=== PATIENT | female | born 1990 | race Caucasian/White ===

== ENCOUNTER 2020-09-29 09:00 | Inpatient (IN) | payer MEDICAID ==
[2020-09-29] MEDS ORDERED: Misoprostol 50 MCG (1/2 of 100 MCG) Tab VAG ONE ×3 (09:30→13:00)
[2020-09-29] MEDS ORDERED: Sodium Chloride 0.9% 10 ML Syringe FLUSH PRN (10:37)
[2020-09-29] MEDS ORDERED: fentaNYL 100 MCG/2 ML SDV IVPUSH PRN ×2 (10:37→20:45)
[2020-09-29] MEDS ORDERED: Ondansetron 4 MG/2 ML SDV IV PRN (10:37)
[2020-09-29] MEDS ORDERED: Calcium Carbonate 500 MG Tab.Chew PO PRN (10:37)
--- NOTE | 2020-09-29 10:54 | PCM.LDHP ---
L&D History of Present Illness - General Date of Service: 09/29/20 Admit Problem/Dx: Patient Status Order with Admit Dx/Problem 09/29/20 10:37 Patient Status [ADT] Routine Admission Diagnosis/Problem Admission Diagnosis/Problem demise affecting labor Source of Information: Patient History Limitations: Reports: No Limitations - History of Present Illness Introduction:: 09/29/20 Nila is a 30 yo here for induction of labor due to demise diagnosed at 33 1/7 weeks. She came in yesterday to the clinic for decreased or absent movement since Sunday09/26/20 and we were unable to find heart tones. She noted he had slowed down and done more rolling rather than sharp kicking or punching last week but was still moving. This was confirmed with an ultrasound. She has had an uncomplicated and has no risk factors. She did have mild COVID at 12 weeks . Blood type O positive, RPR/HIV/Hep B/C all non reactive, rubella immune. Yesterday options were gone over with Nila and her including expectant management for up to 2 weeks, induction of labor, or oral Cytotec at home. They went home and thought about options and ultimately decided they wanted to have an induction of labor today. They have declined any genetic testing on baby, or autopsy. They do agree to TORCH panel on mom. Her p revious two girls had uncomplicated and . They are anticipating their first boy, Lucio. Mother has no history of chronic disease, STI, bleeding, or clotting disorders. Mother had declined first and second trimester genetic testing due to not desiring it and being low risk with no family history. - Related Data Allergies/Adverse Reactions: Allergies Allergy/AdvReac Type Severity Reaction Status Date / Time No Known Allergies Allergy Verified 09/29/20 09:28 Home Medications: Home Meds Mv-Mn/Iron/FA/Herbal/Digestive [ One Tablet] 1 tab PO DAILY 09/29/20 [History] Past Medical History - Past Health History Medical/Surgical History: Denies Medical/Surgical History [employer] History: Reports: : 3 Para: 2 LMP (Approximate): - Infectious Disease History Infectious Disease History: Reports: Chicken Pox Social & Family History - Family History Family Medical History: No Pertinent Family History - Tobacco Use Tobacco Use Status *Q: Never Tobacco User - Caffeine Use Caffeine Use: Reports: Coffee - Recreational Drug Use Recreational Drug Use: No Drug Use in Last 12 Months: No H&P Review of Systems - Review of Systems: Review Of Systems: See Below General: Reports: No Symptoms HEENT: Reports: No Symptoms Pulmonary: Reports: No Symptoms Cardiovascular: Reports: No Symptoms Gastrointestinal: Reports: No Symptoms Genitourinary: Reports: No Symptoms Musculoskeletal: Reports: No Symptoms Skin: Reports: No Symptoms Psychiatric: Reports: No Symptoms Neurological: Reports: No Symptoms Hematologic/Lymphatic: Reports: No Symptoms Immunologic: Reports: No Symptoms L&D Exam - Exam Exam: See Below - Vital Signs Vital Signs: Last Vital Signs Temp 36.3 C 09/29/20 09:30 Pulse 90 09/29/20 09:30 Resp 16 09/29/20 09:30 BP 140/72 09/29/20 09:30 Pulse Ox 98 09/29/20 09:30 Weight: 65 kg - OB Specific Contraction Intensity: Cramping Movement: Not Appreciated Heart Tones: Not [place] - Vizcaino Score Vizcaino Score Cervix Position: Midposition Vizcaino Score Consistency: Soft Vizcaino Score Effacement: 51-70% Vizcaino Score Dilation: 1-2 cm Ivzcaino Score 's Station: -3 Vizcaino Score Total: 6 - Exam General: Alert, Oriented HEENT: PERRLA, Conjunctiva Clear, Hearing Intact, Mucosa Moist & [place], Nares Patent, Normal Nasal Septum, Pupils Equal, Pupils Reactive Neck: Supple, Trachea Midline Lungs: Clear to Auscultation, Normal Respiratory Effort Cardiovascular: Regular Rate, Regular Rhythm GI/Abdominal Exam: Normal Bowel Sounds, Soft, Non-Tender, No Distention, Pelvis Stable Genitourinary: Normal external exam, Normal bimanual exam, Cervical dilitation, Enlarged uterus. No: Vaginal bleeding Back Exam: Normal Inspection, Full Range of Motion Extremities: Normal Inspection, Normal Range of Motion, Non-Tender, No Pedal Edema, Normal Capillary Refill Skin: Warm, Dry, Intact Neurological: Cranial Nerves Intact, Reflexes Equal Bilateral Psychiatric: Alert, Normal Affect, Normal Mood, Other (tearful at times, smiling and talkative though and doing well given the situation) - Problem List (1) 33 weeks gestation of SNOMED Code(s): 62215567 ICD Code: Z3A.33 - 33 WEEKS GESTATION OF Status: Acute Current Visit: Yes (2) demise in [place] greater than 22 weeks gestation, antepartum SNOMED Code(s): 66278235, 286313567 ICD Code: O36.4XX0 - MATERNAL CARE FOR INTRAUTERINE , NOT APPLICABLE OR UNSP Status: Acute Current Visit: Yes Problem List Initiated/Reviewed/Updated: Yes Orders Last 24hrs: Active Orders 24 hr Category Date Time Status Patient Status [ADT] Routine ADT 09/29/20 10:37 Ordered Notify Provider Vital Signs [RC] PRN Care 09/29/20 10:42 Ordered Up ad Maria A [RC] ASDIRECTED Care 09/29/20 10:37 Ordered VTE/DVT Education [RC] Click to Edit Care 09/29/20 10:42 Ordered Vital Signs [RC] PER UNIT ROUTINE Care 09/29/20 10:37 Ordered Regular Diet [DIET] Diet 09/29/20 Breakfast Ordered CBC WITH AUTO DIFF [HEME] Routine Lab 09/29/20 09:04 Ordered COMPREHENSIVE METABOLIC PN,CMP [CHEM] Routine Lab 09/29/20 09:05 Ordered CORONAVIRUS COVID-19, AQUILINO Routine Lab 09/29/20 10:41 Ordered CYTOMEGALOVIRUS (CMV) AB, IGG Routine Lab 09/29/20 09:06 Ordered CYTOMEGALOVIRUS (CMV) AB, IGM Routine Lab 09/29/20 09:06 Ordered DRUG SCREEN, URINE [URCHEM] Routine Lab 09/29/20 09:05 Ordered HSV 1 AND 2-SPEC AB, IGG W/RFX Routine Lab 09/29/20 09:06 Ordered PARVOVIRUS B19, HUMAN, IGG/IGM Routine Lab 09/29/20 09:06 Ordered RUBELLA ANTIBODIES, IGG Routine Lab 09/29/20 09:06 Ordered RUBELLA ANTIBODIES, IGM Routine Lab 09/29/20 09:06 Ordered TOXOPLASMA GONDII AB, IGG Routine Lab 09/29/20 10:35 Ordered TOXOPLASMA GONDII AB,IGM Routine Lab 09/29/20 10:35 Ordered TSH ULTRASENSITIVE [CHEM] Routine Lab 09/29/20 09:06 Ordered TYPE AND SCREEN [BBK] Routine Lab 09/29/20 09:05 Ordered URINALYSIS W/MICROSCOPIC [UA W/MICROSCOPIC] [URIN] Lab 09/29/20 09:05 Ordered Routine Calcium Carbonate [Tums] Med 09/29/20 10:37 Ordered 1,000 mg PO Q2HR PRN Ondansetron [Zofran] Med 09/29/20 10:37 Ordered 4 mg IV Q4H PRN Oxytocin/Normal Saline [Pitocin in NS 20 Units/1,000 ML Med 09/29/20 10:45 Ordered ] 20 unit in 1,000 ml IV TITRATE Sodium Chloride 0.9% [Saline Flush] Med 09/29/20 10:37 Ordered 10 ml FLUSH ASDIRECTED PRN fentaNYL [Sublimaze] Med 09/29/20 10:37 Ordered 100 mcg IVPUSH Q1H PRN DVT/VTE Prophylaxis Reflex [OM.PC] Routine Oth 09/29/20 10:37 Ordered Saline Lock Insert [OM.PC] Routine Oth 09/29/20 10:37 Ordered Resuscitation Status Routine Resus Stat 09/29/20 10:37 Ordered Medication Orders Calcium Carbonate/Glycine (Tums) 1,000 mg PO Q2HR PRN PRN Reason: Indigestion Fentanyl (Sublimaze) 100 mcg IVPUSH Q1H PRN PRN Reason: Pain (moderate 4-6) Oxytocin/Sodium Chloride (Pitocin In Ns 20 Units/1,000 Ml) 20 unit in 1,000 mls @ 6 mls/hr IV TITRATE ИВАН; Protocol Ondansetron HCl (Zofran) 4 mg IV Q4H PRN PRN Reason: Nausea/Vomiting Sodium Chloride (Saline Flush) 10 ml FLUSH ASDIRECTED PRN PRN Reason: Keep Vein Open Assessment/Plan Comment:: 09/29/20 Assessment: 30 yo here for elective induction of labor due to demise that was diagnosed yesterday Baby likely 09/26/20, the day she felt no movement Uncomplicated , no risk factors identified 33 09/05 today SVE /3 Plan: Lab work ordered to include TORCH panel and parovirus Declines genetic testing Declines autopsy 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
--- NOTE | 2020-09-29 13:54 | PCM.PNLD ---
Labor Progress Note - VS & Meds Vital Signs: Last Vital Signs Temp 36.4 C 09/29/20 13:00 Pulse 89 09/29/20 13:00 Resp 16 09/29/20 13:00 BP 136/66 09/29/20 13:00 Pulse Ox 98 09/29/20 13:00 Active Medications: Current Medications Calcium Carbonate/Glycine (Tums) 1,000 mg PO Q2H PRN PRN Reason: Indigestion Fentanyl (Sublimaze) 100 mcg IVPUSH Q1H PRN PRN Reason: Pain (moderate 4-6) Oxytocin/Sodium Chloride (Pitocin In Ns 20 Units/1,000 Ml) 20 unit in 1,000 mls @ 6 mls/hr IV TITRATE ИВАН; Protocol Ondansetron HCl (Zofran) 4 mg IV Q4H PRN PRN Reason: Nausea/Vomiting Sodium Chloride (Saline Flush) 10 ml FLUSH ASDIRECTED PRN PRN Reason: Keep Vein Open Discontinued Medications Misoprostol (Cytotec) 50 mcg VAG ONETIME ONE Stop: 09/29/20 09:31 Last Admin: 09/29/20 09:30 Dose: 50 mcg Documented by: Misoprostol (Cytotec) 100 mcg VAG ONETIME ONE Stop: 09/29/20 13:01 Misoprostol (Cytotec) 100 mcg VAG ONETIME ONE Stop: 09/29/20 12:46 - Uterine Contractions Contraction Intensity: Mild Uterine Resting Tone: Soft - Vaginal Exam Dilation (cm): 2 Effacement (Percent): 80 Station: -2 Cervical Position: Midposition Sterile Vaginal Exam Performed By: Minoo Rodriguez - Labor Progress (Free Text) Labor Progress: 09/29/20 Patient is comfortable but feeling contractions mild. Contractions are every 1-2 minutes and moderate. She has made cervical change and is now 2/80/-2. We have chosen not to do any intervention at this time and will let her continue to contract and recheck in a couple of hours. She would like an epidural before adding pitocin or ROM. is in the room and very supportive. Nila is doing well.
[2020-09-29] MEDS ORDERED: Lactated Ringers 1,000 ML IV ONE (16:05)
[2020-09-29] MEDS ORDERED: diphenhydrAMINE 50 MG/ML SDV IVPUSH PRN ×2 (16:16)
[2020-09-29] MEDS ORDERED: Naloxone 0.4 MG/ML SDV IVPUSH PRN (16:16)
[2020-09-29] MEDS ORDERED: ePHEDrine 50 MG/ML SDV IVPUSH PRN (16:16)
[2020-09-29] MEDS ORDERED: Lactated Ringers 1,000 ML IV SCH (16:30)
[2020-09-29] MEDS ORDERED: Ropivacaine 200 MG in Premix Bag 1 BAG EPIDUR SCH (16:30)
--- NOTE | 2020-09-29 17:56 | PCM.PNLD ---
Labor Progress Note - VS & Meds Vital Signs: Last Vital Signs Temp 36.4 C 09/29/20 17:35 Pulse 75 09/29/20 17:45 Resp 16 09/29/20 17:45 BP 131/71 09/29/20 17:45 Pulse Ox 97 09/29/20 17:45 Active Medications: Current Medications Calcium Carbonate/Glycine (Tums) 1,000 mg PO Q2H PRN PRN Reason: Indigestion Diphenhydramine HCl (Benadryl) 25 mg IVPUSH Q6H PRN PRN Reason: Itching Diphenhydramine HCl (Benadryl) 50 mg IVPUSH Q6H PRN PRN Reason: Itching Ephedrine Sulfate (Ephedrine Sulfate) 10 mg IVPUSH ASDIRECTED PRN PRN Reason: Hypotension Fentanyl (Sublimaze) 100 mcg IVPUSH Q1H PRN PRN Reason: Pain (moderate 4-6) Oxytocin/Sodium Chloride (Pitocin In Ns 20 Units/1,000 Ml) 20 unit in 1,000 mls @ 6 mls/hr IV TITRATE ИВАН; Protocol Last Admin: 09/29/20 17:50 Dose: 2 munits/min, 6 mls/hr Documented by: Lactated Ringer's (Ringers, Lactated) 1,000 mls @ 100 mls/hr IV ASDIRECTED ИВАН Last Admin: 09/29/20 17:05 Dose: 100 mls/hr Documented by: Ropivacaine 200 mg/ Premix 100 mls @ 0 mls/hr EPIDUR ASDIRECTED ИВАН Naloxone HCl (Narcan) 0.1 mg IVPUSH ASDIRECTED PRN PRN Reason: Oversedation Ondansetron HCl (Zofran) 4 mg IV Q4H PRN PRN Reason: Nausea/Vomiting Sodium Chloride (Saline Flush) 10 ml FLUSH ASDIRECTED PRN PRN Reason: Keep Vein Open Discontinued Medications Lactated Ringer's (Ringers, Lactated) 1,000 mls @ 999 mls/hr IV BOLUS ONE Stop: 09/29/20 17:05 Last Admin: 09/29/20 16:05 Dose: 999 mls/hr Documented by: Misoprostol (Cytotec) 50 mcg VAG ONETIME ONE Stop: 09/29/20 09:31 Last Admin: 09/29/20 09:30 Dose: 50 mcg Documented by: Misoprostol (Cytotec) 100 mcg VAG ONETIME ONE Stop: 09/29/20 13:01 Misoprostol (Cytotec) 100 mcg VAG ONETIME ONE Stop: 09/29/20 12:46 Last Admin: 09/29/20 13:53 Dose: Not Given Documented by: - Uterine Contractions Uterine Monitoring Mode: External [place], Palp[place] Contraction Frequency (min): 2 Contraction Duration (sec): 50-80 Contraction Intensity: Moderate Uterine Resting Tone: Soft - Vaginal Exam Dilation (cm): 3 Effacement (Percent): 80 Station: -2 Cervical Position: Midposition Sterile Vaginal Exam Performed By: Minoo Rodriguez - Labor Progress (Free Text) Labor Progress: 09/29/20 Patient has been having stronger contractions and received an epidural for her pain. After epidural is placed and she is comfortable she is 3/80/-3, head ballotable. We have decided to start pitocin to augment labor. Will monitor for resting uterus between contractions. We have discussed several things including uatsdin which they have declined, now I lay me photos which they would like after delivery, and discharge options for baby. They have not decided on baby disposition at this time. They plan to hold baby and spend time with him and have family come as well. Patient and are doing well emotionally given the circumstances.
[2020-09-29] MEDS ORDERED: Ropivacaine 100 ML ONE (18:32)
--- NOTE | 2020-09-29 18:47 | ANES ---
DATE OF SERVICE: 09/29/2020 INDICATIONS: Nila is a 30-year-old female patient of Minoo Rodriguez CNM. Please refer to Minoo Rodriguez's note for diagnosis. I was consulted by Obstetrics Unit to assess the patient for labor epidural for patient with demise. Upon arrival, I found a healthy 30-year- old female. Upon reviewing patient's history and lab work, I found no contraindication to epidural placement. DESCRIPTION OF PROCEDURE: I had her seated at the edge of the bed. Betadine prep x3 to lumbar region. Sterile drape was placed, 1% lidocaine skin wheal as well as deep at the L3- L4 region. A 17-gauge Tuohy was placed to loss of resistance. Negative CSF, negative heme, negative paresthesia noted. After placing catheter, I noted that there was blood return in catheter. I removed the catheter, flushed it, and reattempted with local anesthetic at the L4-L5 region. A 17-gauge Tuohy was placed to loss of resistance with ease. Negative CSF, negative heme, negative paresthesia. I placed the catheter to 15 cm and secured it. I dosed the patient with a test dose of 3 mL of 1.5% lidocaine, 1:200,000 epinephrine. Negative sequelae. The patient's catheter was secured, and the patient was placed in a supine position, dosed with 12 mL of 0.2% ropivacaine and again infusion of that same 0.2% ropivacaine. She tolerated the procedure quite well. Please refer to nurse's notes for vital signs and neuro status, which were unchanged and within normal limits. I reported off to the nurse and the provider. Yusuf Valenzuela CRNA /[id number]
[2020-09-29] MEDS ORDERED: fentaNYL 100 MCG/2 ML SDV ONE (19:47)
--- NOTE | 2020-09-29 20:14 | ANES ---
DATE OF SERVICE: 09/29/2020 Nila is a 30-year-old female, in our Obstetric Unit, with Minoo Rodriguez CNM. I placed an epidural in Ms. Bunch approximately 2 hours ago. She is having some breakthrough discomfort at this point. I reviewed her current status and bolused her with 8 mL of 0.2% ropivacaine. I increased the rate to 14 mL an hour and bolused her with 100 mcg of fentanyl in the epidural. She tolerated that quite well. Yusuf Valenzuela CRNA /[id number]
--- NOTE | 2020-09-29 20:46 | PCM.PNLD ---
Labor Progress Note - VS & Meds Vital Signs: Last Vital Signs Temp 36.4 C 09/29/20 17:35 Pulse 84 09/29/20 18:40 Resp 16 09/29/20 18:40 BP 134/80 09/29/20 18:40 Pulse Ox 97 09/29/20 18:40 Active Medications: Current Medications Calcium Carbonate/Glycine (Tums) 1,000 mg PO Q2H PRN PRN Reason: Indigestion Diphenhydramine HCl (Benadryl) 25 mg IVPUSH Q6H PRN PRN Reason: Itching Diphenhydramine HCl (Benadryl) 50 mg IVPUSH Q6H PRN PRN Reason: Itching Ephedrine Sulfate (Ephedrine Sulfate) 10 mg IVPUSH ASDIRECTED PRN PRN Reason: Hypotension Fentanyl (Sublimaze) 100 mcg IVPUSH Q1H PRN PRN Reason: Pain (moderate 4-6) Oxytocin/Sodium Chloride (Pitocin In Ns 20 Units/1,000 Ml) 20 unit in 1,000 mls @ 6 mls/hr IV TITRATE [facility]; Protocol Last Titration: 09/29/20 19:01 Dose: 1 munits/min, 3 mls/hr Documented by: Lactated Ringer's (Ringers, Lactated) 1,000 mls @ 100 mls/hr IV ASDIRECTED [facility] Last Admin: 09/29/20 17:05 Dose: 100 mls/hr Documented by: Ropivacaine 200 mg/ Premix 100 mls @ 0 mls/hr EPIDUR ASDIRECTED [facility] Last Admin: 09/29/20 18:00 Dose: 12 mls/hr Documented by: Naloxone HCl (Narcan) 0.1 mg IVPUSH ASDIRECTED PRN PRN Reason: Oversedation Ondansetron HCl (Zofran) 4 mg IV Q4H PRN PRN Reason: Nausea/Vomiting Sodium Chloride (Saline Flush) 10 ml FLUSH ASDIRECTED PRN PRN Reason: Keep Vein Open Discontinued Medications Fentanyl (Sublimaze) Confirm Administered Dose 100 mcg .ROUTE .STK-MED ONE Stop: 09/29/20 19:48 Lactated Ringer's (Ringers, Lactated) 1,000 mls @ 999 mls/hr IV BOLUS ONE Stop: 09/29/20 17:05 Last Admin: 09/29/20 16:05 Dose: 999 mls/hr Documented by: Ropivacaine (Naropin 0.2%) Confirm Administered Dose 100 mls @ as directed .ROUTE .STK-MED ONE Stop: 09/29/20 18:33 Misoprostol (Cytotec) 50 mcg VAG ONETIME ONE Stop: 09/29/20 09:31 Last Admin: 09/29/20 09:30 Dose: 50 mcg Documented by: Misoprostol (Cytotec) 100 mcg VAG ONETIME ONE Stop: 09/29/20 13:01 Misoprostol (Cytotec) 100 mcg VAG ONETIME ONE Stop: 09/29/20 12:46 Last Admin: 09/29/20 13:53 Dose: Not Given Documented by: - Uterine Contractions Uterine Monitoring Mode: External [place] Contraction Frequency (min): 1-2.5 Contraction Duration (sec): 40-80 Contraction Intensity: Moderate to Strong Uterine Resting Tone: Soft - Vaginal Exam Dilation (cm): 7 Effacement (Percent): 90 Station: -1 Cervical Position: Midposition Sterile Vaginal Exam Performed By: Minoo Rodriguez - Labor Progress (Free Text) Labor Progress: 09/29/20 AROM with large amount of clear/brown tinged fluid. No meconium. SVE /-1. Patients epidural not working and the [employer] has given the okay for IV Fentanyl. Anticipate delivery shortly.
[2020-09-29] MEDS ORDERED: Lidocaine 1% 50 ML MDV ONE (21:48)
[2020-09-29] MEDS ORDERED: Benzocaine 20% Top Spray 56 GM Bottle TOP ONE (22:22)
[2020-09-29] MEDS ORDERED: Docusate Sodium 100 MG Cap PO PRN (22:22)
[2020-09-29] MEDS ORDERED: Witch Hazel Medicated Pads 100/Jar TOP PRN (22:22)
[2020-09-29] MEDS ORDERED: Ibuprofen 200 MG Tab, 24 Tab Bulk Bottle PO PRN (22:26)
[2020-09-29] MEDS ORDERED: Acetaminophen 325 MG Tab, 50 Tab Bulk Bottle PO PRN (22:26)
[2020-09-29] MEDS ORDERED: Lidocaine 1% 20 ML MDV INJECT ONE (22:32)
--- NOTE | 2020-09-29 22:43 | PCM.DEL ---
L & D Note - General Info Date of Service: 09/29/20 Mother's Due Date: 11/15/20 - Delivery Note Labor: Augmented by ARM, Augmented by Oxytocin Cervical Ripening Method: Misoprostil Delivery Outcome: Stillbirth Delivery Method: Spontaneous Vaginal Delivery-Single Delivery Mode: Spontaneous Presentation: Vertex Nuchal Cord: None Anesthesia Type: Epidural Anesthetic: Lidocaine (Xylocaine) 1% Plain Local Anesthetic Volume: 5cc Amniotic Fluid Description: Clear (brown tint) Episiotomy Type: None Laceration: 2nd Degree, Perineal Suture type: Vicryl Suture size: 3-0 Placenta: Intact, Spontaneous Cord: 3 Vessels Estimated Blood Loss: 150 Second Stage Interventions: Reports: Encouragement Given, Pushing Involuntarily, Pushing, Pulls Own Legs Back Delivery Comments (Free Text/Narrative):: 09/29/20 Nila is a 30 yo [id number] who had an induction of labor due to in utero in the 33rd week of . We used vaginal cytotec this morning to ripen her cervix. She contracted nicely and we did not need to start anything else until this afternoon when we added low dose pitocin after she received an epidural. Once she was 6 cm, AROM was done with clear brown tinted fluid. She progressed quickly to complete and had spontaneous delivery of male stillborn at 2133. She had an epidural that did not provide pain relief despite bolus and increasing rate. IV Fentanyl was used to help comfort her. Baby boy was placed on the bed, cord is clamped and cut, he is wrapped after inspection and given directly to mother. There are no knots in the cord or nuchal cord. Nothing obvious seen as to cause of this stillbirth. I was unable to get cord blood from the cord or the placenta itself-it is completely clotted. The placenta appears pale and slightly friable but otherwise looks fine. Will send for pathology. Mother and father are sure they do not want any genetic testing done and so we have decided not to draw from baby. The placenta delivered spontaneously intact with a 3 vessel cord. Mother did have a 2nd degree perineal laceration repaired with 3-0 Vicryl, lidocaine used for anesthesia. No cervical or vaginal tears. EBL 150 ml. Pitocin given IV for 3rd stage management after placenta is out. Baby boy is 4 lb 4 oz and 17 in long. He does have some areas of peeling skin and his face is slightly lopsided due to how he was laying in the womb. Mother is stable and holding the baby in the room. Hse Manager is here. Stages of labor: 1: [id number] 2: [id number] 3: 1269-2000 - General Info Date of Service: 09/29/20 Functional Status: Reports: Pain Controlled - Review of Systems General: Reports: No Symptoms HEENT: Reports: No Symptoms Pulmonary: Reports: No Symptoms Cardiovascular: Reports: No Symptoms Gastrointestinal: Reports: No Symptoms Genitourinary: Reports: No Symptoms Musculoskeletal: Reports: No Symptoms Skin: Reports: No Symptoms Neurological: Reports: No Symptoms Psychiatric: Reports: Other (tearful) - Patient Data Vitals - Most Recent: Last Vital Signs Temp 36.4 C 09/29/20 20:30 Pulse 68 09/29/20 20:30 Resp 18 09/29/20 20:30 BP 114/70 09/29/20 20:30 Pulse Ox 98 09/29/20 20:30 Weight - Most Recent: 65 kg I&O - Last 24 Hours: Intake & Output 09/29/20 09/29/20 09/29/20 06:59 14:59 22:59 Intake Total 300 Balance 300 Lab Results Last 24 Hours: Laboratory Results - last 24 hr 09/29/20 09/29/20 09/29/20 Range/Units 10:43 10:43 10:53 WBC (4.5-11.0) K/uL RBC (3.30-5.50) M/uL Hgb (12.0-15.0) g/dL Hct (36.0-48.0) % MCV (80-98) fL MCH (27-31) pg MCHC (32-36) % Plt Count (150-400) K/uL Neut % (Auto) (36-66) % Lymph % (Auto) (24-44) % Eagle % (Auto) (2-6) % Eos % (Auto) (2-4) % Baso % (Auto) (0-1) % PT (9.5-12.0) sec INR (0.80-1.20) APTT (27.0-36.0) sec Fibrinogen (200.0-400.0) mg/dL Sodium (140-148) mmol/L Potassium (3.6-5.2) mmol/L Chloride (100-108) mmol/L Carbon Dioxide (21-32) mmol/L Anion Gap (5.0-14.0) mmol/L BUN (7-18) mg/dL Creatinine (0.6-1.0) mg/dL Est Cr Clr Drug Dosing mL/min Estimated GFR (MDRD) (>60) Glucose (74-106) mg/dL Calcium (8.5-10.1) mg/dL Total Bilirubin (0.2-1.0) mg/dL AST (15-37) U/L ALT (12-78) U/L Alkaline Phosphatase (46-116) U/L Lactate Dehydrogenase (82-234) U/L Total Protein (6.4-8.2) g/dL Albumin (3.4-5.0) g/dL Globulin (2.3-3.5) g/dL Albumin/Globulin Ratio (1.2-2.2) TSH, Ultra Sensitive (0.358-3.740) uIU/mL Urine Color Yellow (YELLOW) Urine Appearance Cloudy A (CLEAR) Urine pH 6.5 (5.0-8.0) Ur Specific [place] 1.025 (1.008-1.030) Urine Protein Trace H (NEGATIVE) mg/dL Urine Glucose (UA) Negative (NEGATIVE) mg/dL Urine Ketones Trace H (NEGATIVE) mg/dL Urine Occult Blood Negative (NEGATIVE) Urine Nitrite Negative (NEGATIVE) Urine Bilirubin Negative (NEGATIVE) Urine Urobilinogen 0.2 (0.2-1.0) EU/dL Ur Leukocyte Esterase Large H (NEGATIVE) Urine RBC 0-5 (0-5) Urine WBC 40-50 H (0-5) Ur Epithelial Cells Many Amorphous Sediment Not seen Urine Bacteria Many Urine Mucus Not seen Ur Random Creatinine (20.0-370.0) mg/dL U Random Total Protein (6.0-11.9) mg/dL Protein/Creatinin Ratio (21.0-161.0) mg/g Urine Opiates Screen Negative (NEGATIVE) Ur Oxycodone Screen Negative (NEGATIVE) Urine Methadone Screen Negative (NEGATIVE) Ur Propoxyphene Screen Negative (NEGATIVE) Ur Barbiturates Screen Negative (NEGATIVE) Ur Tricyclics Screen Negative (NEGATIVE) Ur Phencyclidine Scrn Negative (NEGATIVE) Ur Amphetamine Screen Negative (NEGATIVE) U Methamphetamines Scrn Negative (NEGATIVE) Urine MDMA Screen Negative (NEGATIVE) U Benzodiazepines Scrn Negative (NEGATIVE) U Cocaine Metab Screen Negative (NEGATIVE) U Marijuana (THC) Screen Negative (NEGATIVE) SARS CoV-2 RNA Rapid AQUILINO Negative Blood Type Gel Antibody Screen 09/29/20 09/29/20 09/29/20 Range/Units 10:56 10:56 10:56 WBC 8.5 (4.5-11.0) K/uL RBC 4.06 (3.30-5.50) M/uL Hgb 11.4 L (12.0-15.0) g/dL Hct 35.1 L (36.0-48.0) % MCV 87 (80-98) fL MCH 28 (27-31) pg MCHC 33 (32-36) % Plt Count 254 (150-400) K/uL Neut % (Auto) 79 H (36-66) % Lymph % (Auto) 16 L (24-44) % Eagle % (Auto) 5 (2-6) % Eos % (Auto) 0 L (2-4) % Baso % (Auto) 0 (0-1) % PT (9.5-12.0) sec INR (0.80-1.20) APTT (27.0-36.0) sec Fibrinogen (200.0-400.0) mg/dL Sodium 138 L (140-148) mmol/L Potassium 3.8 (3.6-5.2) mmol/L Chloride 105 (100-108) mmol/L Carbon Dioxide 24 (21-32) mmol/L Anion Gap 12.8 (5.0-14.0) mmol/L BUN 9 (7-18) mg/dL Creatinine 0.8 (0.6-1.0) mg/dL Est Cr Clr Drug Dosing 99.99 mL/min Estimated GFR (MDRD) > 60 (>60) Glucose 99 (74-106) mg/dL Calcium 8.7 (8.5-10.1) mg/dL Total Bilirubin 0.3 (0.2-1.0) mg/dL AST 24 (15-37) U/L ALT 13 (12-78) U/L Alkaline Phosphatase 114 (46-116) U/L Lactate Dehydrogenase (82-234) U/L Total Protein 6.9 (6.4-8.2) g/dL Albumin 2.9 L (3.4-5.0) g/dL Globulin 4.0 H (2.3-3.5) g/dL Albumin/Globulin Ratio 0.7 L (1.2-2.2) TSH, Ultra Sensitive (0.358-3.740) uIU/mL Urine Color (YELLOW) Urine Appearance (CLEAR) Urine pH (5.0-8.0) Ur Specific [place] (1.008-1.030) Urine Protein (NEGATIVE) mg/dL Urine Glucose (UA) (NEGATIVE) mg/dL Urine Ketones (NEGATIVE) mg/dL Urine Occult Blood (NEGATIVE) Urine Nitrite (NEGATIVE) Urine Bilirubin (NEGATIVE) Urine Urobilinogen (0.2-1.0) EU/dL Ur Leukocyte Esterase (NEGATIVE) Urine RBC (0-5) Urine WBC (0-5) Ur Epithelial Cells Amorphous Sediment Urine Bacteria Urine Mucus Ur Random Creatinine (20.0-370.0) mg/dL U Random Total Protein (6.0-11.9) mg/dL Protein/Creatinin Ratio (21.0-161.0) mg/g Urine Opiates Screen (NEGATIVE) Ur Oxycodone Screen (NEGATIVE) Urine Methadone Screen (NEGATIVE) Ur Propoxyphene Screen (NEGATIVE) Ur Barbiturates Screen (NEGATIVE) Ur Tricyclics Screen (NEGATIVE) Ur Phencyclidine Scrn (NEGATIVE) Ur Amphetamine Screen (NEGATIVE) U Methamphetamines Scrn (NEGATIVE) Urine MDMA Screen (NEGATIVE) U Benzodiazepines Scrn (NEGATIVE) U Cocaine Metab Screen (NEGATIVE) U Marijuana (THC) Screen (NEGATIVE) SARS CoV-2 RNA Rapid AQUILINO Blood Type O POSITIVE Gel Antibody Screen Negative 09/29/20 09/29/20 09/29/20 Range/Units 10:56 11:00 19:01 WBC (4.5-11.0) K/uL RBC (3.30-5.50) M/uL Hgb (12.0-15.0) g/dL Hct (36.0-48.0) % MCV (80-98) fL MCH (27-31) pg MCHC (32-36) % Plt Count (150-400) K/uL Neut % (Auto) (36-66) % Lymph % (Auto) (24-44) % [place] % (Auto) (2-6) % Eos % (Auto) (2-4) % Baso % (Auto) (0-1) % PT (9.5-12.0) sec INR (0.80-1.20) APTT (27.0-36.0) sec Fibrinogen (200.0-400.0) mg/dL Sodium (140-148) mmol/L Potassium (3.6-5.2) mmol/L Chloride (100-108) mmol/L Carbon Dioxide (21-32) mmol/L Anion Gap (5.0-14.0) mmol/L BUN (7-18) mg/dL Creatinine (0.6-1.0) mg/dL Est Cr Clr Drug Dosing mL/min Estimated GFR (MDRD) (>60) Glucose (74-106) mg/dL Calcium (8.5-10.1) mg/dL Total Bilirubin (0.2-1.0) mg/dL AST (15-37) U/L ALT (12-78) U/L Alkaline Phosphatase (46-116) U/L Lactate Dehydrogenase 360 H (82-234) U/L Total Protein (6.4-8.2) g/dL Albumin (3.4-5.0) g/dL Globulin (2.3-3.5) g/dL Albumin/Globulin Ratio (1.2-2.2) TSH, Ultra Sensitive 1.458 (0.358-3.740) uIU/mL Urine Color (YELLOW) Urine Appearance (CLEAR) Urine pH (5.0-8.0) Ur Specific [place] (1.008-1.030) Urine Protein (NEGATIVE) mg/dL Urine Glucose (UA) (NEGATIVE) mg/dL Urine Ketones (NEGATIVE) mg/dL Urine Occult Blood (NEGATIVE) Urine Nitrite (NEGATIVE) Urine Bilirubin (NEGATIVE) Urine Urobilinogen (0.2-1.0) EU/dL Ur Leukocyte Esterase (NEGATIVE) Urine RBC (0-5) Urine WBC (0-5) Ur Epithelial Cells Amorphous Sediment Urine Bacteria Urine Mucus Ur Random Creatinine 127.2 (20.0-370.0) mg/dL U Random Total Protein 6.5 (6.0-11.9) mg/dL Protein/Creatinin Ratio 51.1 (21.0-161.0) mg/g Urine Opiates Screen (NEGATIVE) Ur Oxycodone Screen (NEGATIVE) Urine Methadone Screen (NEGATIVE) Ur Propoxyphene Screen (NEGATIVE) Ur Barbiturates Screen (NEGATIVE) Ur Tricyclics Screen (NEGATIVE) Ur Phencyclidine Scrn (NEGATIVE) Ur Amphetamine Screen (NEGATIVE) U Methamphetamines Scrn (NEGATIVE) Urine MDMA Screen (NEGATIVE) U Benzodiazepines Scrn (NEGATIVE) U Cocaine Metab Screen (NEGATIVE) U Marijuana (THC) Screen (NEGATIVE) SARS CoV-2 RNA Rapid AQUILINO Blood Type Gel Antibody Screen 09/29/20 09/29/20 09/29/20 Range/Units 19:24 19:24 19:24 WBC 11.5 H (4.5-11.0) K/uL RBC 3.84 (3.30-5.50) M/uL Hgb 10.7 L (12.0-15.0) g/dL Hct 33.0 L (36.0-48.0) % MCV 86 (80-98) fL MCH 28 (27-31) pg MCHC 32 (32-36) % Plt Count 238 (150-400) K/uL Neut % (Auto) 77 H (36-66) % Lymph % (Auto) 16 L (24-44) % [place] % (Auto) 7 H (2-6) % Eos % (Auto) 0 L (2-4) % Baso % (Auto) 0 (0-1) % PT 10.2 (9.5-12.0) sec INR 0.93 (0.80-1.20) APTT 23.8 L (27.0-36.0) sec Fibrinogen 349.0 (200.0-400.0) mg/dL Sodium (140-148) mmol/L Potassium (3.6-5.2) mmol/L Chloride (100-108) mmol/L Carbon Dioxide (21-32) mmol/L Anion Gap (5.0-14.0) mmol/L BUN (7-18) mg/dL Creatinine (0.6-1.0) mg/dL Est Cr Clr Drug Dosing mL/min Estimated GFR (MDRD) (>60) Glucose (74-106) mg/dL Calcium (8.5-10.1) mg/dL Total Bilirubin (0.2-1.0) mg/dL AST (15-37) U/L ALT (12-78) U/L Alkaline Phosphatase (46-116) U/L Lactate Dehydrogenase (82-234) U/L Total Protein (6.4-8.2) g/dL Albumin (3.4-5.0) g/dL Globulin (2.3-3.5) g/dL Albumin/Globulin Ratio (1.2-2.2) TSH, Ultra Sensitive (0.358-3.740) uIU/mL Urine Color (YELLOW) Urine Appearance (CLEAR) Urine pH (5.0-8.0) Ur Specific [place] (1.008-1.030) Urine Protein (NEGATIVE) mg/dL Urine Glucose (UA) (NEGATIVE) mg/dL Urine Ketones (NEGATIVE) mg/dL Urine Occult Blood (NEGATIVE) Urine Nitrite (NEGATIVE) Urine Bilirubin (NEGATIVE) Urine Urobilinogen (0.2-1.0) EU/dL Ur Leukocyte Esterase (NEGATIVE) Urine RBC (0-5) Urine WBC (0-5) Ur Epithelial Cells Amorphous Sediment Urine Bacteria Urine Mucus Ur Random Creatinine (20.0-370.0) mg/dL U Random Total Protein (6.0-11.9) mg/dL Protein/Creatinin Ratio (21.0-161.0) mg/g Urine Opiates Screen (NEGATIVE) Ur Oxycodone Screen (NEGATIVE) Urine Methadone Screen (NEGATIVE) Ur Propoxyphene Screen (NEGATIVE) Ur Barbiturates Screen (NEGATIVE) Ur Tricyclics Screen (NEGATIVE) Ur Phencyclidine Scrn (NEGATIVE) Ur Amphetamine Screen (NEGATIVE) U Methamphetamines Scrn (NEGATIVE) Urine MDMA Screen (NEGATIVE) U Benzodiazepines Scrn (NEGATIVE) U Cocaine Metab Screen (NEGATIVE) U Marijuana (THC) Screen (NEGATIVE) SARS CoV-2 RNA Rapid AQUILINO Blood Type Gel Antibody Screen Med Orders - Current: Current Medications Acetaminophen (Tylenol Bulk Bottle) 0 mg PO Q4H PRN PRN Reason: Pain Benzocaine (Anzm-I-Cdrohir 20% [place]) 0 gm TOP ONETIME ONE Stop: 09/29/20 22:23 Calcium Carbonate/Glycine (Tums) 1,000 mg PO Q2H PRN PRN Reason: Indigestion Diphenhydramine HCl (Benadryl) 25 mg IVPUSH Q6H PRN PRN Reason: Itching Diphenhydramine HCl (Benadryl) 50 mg IVPUSH Q6H PRN PRN Reason: Itching Docusate Sodium (Colace) 100 mg PO BID PRN PRN Reason: Constipation Ephedrine Sulfate (Ephedrine Sulfate) 10 mg IVPUSH ASDIRECTED PRN PRN Reason: Hypotension Fentanyl (Sublimaze) 100 mcg IVPUSH Q1H PRN PRN Reason: Pain (moderate 4-6) Last Admin: 09/29/20 21:01 Dose: 50 mcg Documented by: Fentanyl (Sublimaze) 100 mcg IVPUSH Q1H PRN PRN Reason: Pain (moderate 4-6) Oxytocin/Sodium Chloride (Pitocin In Ns 20 Units/1,000 Ml) 20 unit in 1,000 mls @ 6 mls/hr IV TITRATE [facility]; Protocol Last Titration: 09/29/20 19:01 Dose: 1 munits/min, 3 mls/hr Documented by: Lactated Ringer's (Ringers, Lactated) 1,000 mls @ 100 mls/hr IV ASDIRECTED [facility] Last Admin: 09/29/20 17:05 Dose: 100 mls/hr Documented by: Ropivacaine 200 mg/ Premix 100 mls @ 0 mls/hr EPIDUR ASDIRECTED [facility] Last Admin: 09/29/20 18:00 Dose: 12 mls/hr Documented by: Ibuprofen (Motrin Bulk Bottle) 600 mg PO Q6H PRN PRN Reason: Pain Naloxone HCl (Narcan) 0.1 mg IVPUSH ASDIRECTED PRN PRN Reason: Oversedation Ondansetron HCl (Zofran) 4 mg IV Q4H PRN PRN Reason: Nausea/Vomiting Sodium Chloride (Saline Flush) 10 ml FLUSH ASDIRECTED PRN PRN Reason: Keep Vein Open Witch Nyla (Tucks) 1 pad TOP ASDIRECTED PRN PRN Reason: Other Discontinued Medications Fentanyl (Sublimaze) Confirm Administered Dose 100 mcg .ROUTE .STK-MED ONE Stop: 09/29/20 19:48 Lactated Ringer's (Ringers, Lactated) 1,000 mls @ 999 mls/hr IV BOLUS ONE Stop: 09/29/20 17:05 Last Admin: 09/29/20 16:05 Dose: 999 mls/hr Documented by: Ropivacaine (Naropin 0.2%) Confirm Administered Dose 100 mls @ as directed .ROUTE .STK-MED ONE Stop: 09/29/20 18:33 Lidocaine HCl (Xylocaine 1%) Confirm Administered Dose 50 ml .ROUTE .STK-MED ONE Stop: 09/29/20 21:49 Misoprostol (Cytotec) 50 mcg VAG ONETIME ONE Stop: 09/29/20 09:31 Last Admin: 09/29/20 09:30 Dose: 50 mcg Documented by: Misoprostol (Cytotec) 100 mcg VAG ONETIME ONE Stop: 09/29/20 13:01 Misoprostol (Cytotec) 100 mcg VAG ONETIME ONE Stop: 09/29/20 12:46 Last Admin: 09/29/20 13:53 Dose: Not Given Documented by: - Exam General: Alert, Oriented HEENT: Pupils Equal, Pupils Reactive, Mucous Membr. Moist/[place] Neck: Supple Lungs: Clear to Auscultation, Normal Respiratory Effort Cardiovascular: Regular Rate, Regular Rhythm GI/Abdominal Exam: Normal Bowel Sounds, Soft, Non-Tender, No Mass, Pelvis Stable (Female) Exam: Normal External Exam, Normal Bimanual Exam, Cervical Dilatation, Enlarged Uterus, Vaginal Bleeding Back Exam: Normal Inspection, Full Range of Motion Extremities: Normal Inspection, Normal Range of Motion, Non-Tender, No Pedal E julius, Normal Capillary Refill Skin: Warm, Dry, Intact Neurological: No New Focal Deficit Psy/Mental Status: Alert, Other (tearful, holding baby and bonding) - Problem List & Annotations (1) 33 weeks gestation of SNOMED Code(s): 39171242 Code(s): Z3A.33 - 33 WEEKS GESTATION OF Status: Acute Current Visit: Yes (2) demise in [place] greater than 22 weeks gestation, antepartum SNOMED Code(s): 30546828, 398883039 Code(s): O36.4XX0 - MATERNAL CARE FOR INTRAUTERINE , NOT APPLICABLE OR UNSP Status: Acute Current Visit: Yes (3) Second degree perineal laceration SNOMED Code(s): 0020282 Code(s): O70.1 - SECOND DEGREE PERINEAL LACERATION DURING DELIVERY Status: Acute Current Visit: Yes (4) Vaginal delivery SNOMED Code(s): 150461677 Code(s): O80 - ENCOUNTER FOR FULL-TERM UNCOMPLICATED DELIVERY Status: Acute Current Visit: Yes - Problem List Review Problem List Initiated/Reviewed/Updated: Yes - My Orders Last 24 Hours: My Active Orders 09/29/20 Breakfast Regular Diet [DIET] 09/29/20 10:30 CULTURE URINE [RM] Routine 09/29/20 10:37 Patient Status [ADT] Routine Up ad Maria A [RC] ASDIRECTED Vital Signs [RC] PER UNIT ROUTINE Calcium Carbonate [Tums] 1,000 mg PO Q2H PRN Ondansetron [Zofran] 4 mg IV Q4H PRN Sodium Chloride 0.9% [Saline Flush] 10 ml FLUSH ASDIRECTED PRN fentaNYL [Sublimaze] 100 mcg IVPUSH Q1H PRN DVT/VTE Prophylaxis Reflex [OM.PC] Routine Saline Lock Insert [OM.PC] Routine Resuscitation Status Routine 09/29/20 10:42 Notify Provider Vital Signs [RC] PRN VTE/DVT Education [RC] Click to Edit 09/29/20 10:45 Oxytocin/Normal Saline [Pitocin in NS 20 Units/1,000 ML] 20 unit in 1,000 ml IV TITRATE 09/29/20 10:56 CYTOMEGALOVIRUS (CMV) AB, IGG Routine CYTOMEGALOVIRUS (CMV) AB, IGM Routine HSV 1 AND 2-SPEC AB, IGG W/RFX Routine PARVOVIRUS B19, HUMAN, IGG/IGM Routine PATIENT RETYPE [BBK] Routine RUBELLA ANTIBODIES, IGG Routine RUBELLA ANTIBODIES, IGM Routine TOXOPLASMA GONDII AB, IGG Routine TOXOPLASMA GONDII AB,IGM Routine TYPE AND SCREEN [BBK] Routine 09/29/20 11:36 CULTURE GROUP B STREP [RM] Routine 09/29/20 16:26 Communication Order [RC] ASDIRECTED Local Anesthetic Infusion Pump [RC] ASDIRECTED Urinary Catheter Assessment [RC] ASDIRECTED 09/29/20 16:30 Insert Urinary Catheter [OM.PC] ASDIRECTED Lactated Ringers [Ringers, Lactated] 1,000 ml IV ASDIRECTED Ropivacaine [Naropin 0.2%] 200 mg Premix Bag 1 bag EPIDUR ASDIRECTED 09/29/20 20:45 fentaNYL [Sublimaze] 100 mcg IVPUSH Q1H PRN 09/29/20 22:22 Patient Status [ADT] Routine Vital Signs [RC] PFP Benzocaine [Wjaa-U-Vsccfwh 20% [place]] See Dose Instructions TOP ONETIME ONE Docusate Sodium [Colace] 100 mg PO BID PRN maykel Nyla [Tucks] 1 pad TOP ASDIRECTED PRN Assess Lochia [WOMSER] Per Unit Routine Assess Uterine Involution [WOMSER] Per Unit Routine 09/29/20 22:24 Ice Therapy [OM.PC] Per Unit Routine Perineal Care [OM.PC] Per Unit Routine Sitz Bath [OM.PC] Per Unit Routine 09/29/20 22:26 Acetaminophen [Tylenol Bulk Bottle] See Dose Instructions PO Q4H PRN Ibuprofen [Motrin Bulk Bottle] 600 mg PO Q6H PRN 09/30/20 05:11 CBC WITH AUTO DIFF [HEME] AM - Assessment Assessment:: 09/29/20 delivered stillborn male at 2133 after induction of labor Baby boy 4 lb 4 oz, 17 in long 2nd degree perineal laceration, repaired EBL 150 ml AVSS Holding baby, crying intermittently Baby boy has some peeling skin, careful cares with him - Plan Plan:: 09/29/20 Assessment: 30 yo here for elective induction of labor due to demise that was diagnosed yesterday Baby likely 09/26/20, the day she felt no movement Uncomplicated , no risk factors identified 33 09/05 today SVE /3 Plan: Lab work ordered to include TORCH panel and parovirus Declines genetic testing Declines autopsy 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
[2020-09-30] MEDS ORDERED: Benzocaine 20% Top Spray 56 GM Bottle TOP SCH (05:15)
[2020-09-30] MEDS ORDERED: Benzocaine 20% Top Spray 56 GM Bottle TOP PRN (05:23)
[2020-09-30 14:07] VITALS: BP 122/68; PULSE 70
[2020-10-01 15:14] LABS: PARVOVIRUS B19, IGM 0.7 index (0.0-0.8)
--- NOTE | 2020-10-03 11:33 | PCM.PNPP ---
- General Info Date of Service: 09/30/20 Subjective Update: Nila and her are in the room holding and crying over their baby boy. They are both very supportive with one another. She smiles and states they are doing as good as they can. she is doing okay stating her bleeding is light and her pain is controlled. They have both talked and have decided for sure that they do NOT want any genetic testing done on the baby. Functional Status: Reports: Pain Controlled - Review of Systems General: Reports: Other (grieving) HEENT: Reports: No Symptoms Pulmonary: Reports: No Symptoms Cardiovascular: Reports: No Symptoms Gastrointestinal: Reports: No Symptoms Genitourinary: Reports: No Symptoms Musculoskeletal: Reports: No Symptoms Skin: Reports: No Symptoms Neurological: Reports: No Symptoms Psychiatric: Reports: Other (tearful, grieving, normal responses) - General Info Date of Service: 09/30/20 - Patient Data Vital Signs - Most Recent: Last Vital Signs Temp 36.2 C 09/30/20 12:30 Pulse 70 09/30/20 12:30 Resp 16 09/30/20 12:30 BP 122/68 09/30/20 12:30 Pulse Ox 99 09/30/20 12:30 Weight - Most Recent: 64.864 kg Micro Results - Last 24 Hours: Microbiology 09/29/20 11:36 Group B Streptococcus Culture - Final Vaginal/Rectal NEGATIVE STREP GROUP B 09/29/20 10:30 Urine Culture - Final Urine, Clean Catch NO GROWTH AFTER 2 DAYS Med Orders - Current: Current Medications Discontinued Medications Acetaminophen (Tylenol Bulk Bottle) 0 mg PO Q4H PRN PRN Reason: Pain Last Admin: 09/30/20 00:47 Dose: 325 mg Documented by: Benzocaine (Puim-S-Njcyico 20% Martin) 0 gm TOP ONETIME ONE Stop: 09/29/20 22:23 Last Admin: 09/30/20 05:14 Dose: Not Given Documented by: Benzocaine (Ruia-B-Zsqcqii 20% Martin) 2 gm TOP ASDIRECTED ИВАН Benzocaine (Ejxj-M-Gxlvsnq 20% Martin) 0 gm TOP ASDIRECTED PRN PRN Reason: Pain Last Admin: 09/30/20 05:41 Dose: 1 spray Documented by: Calcium Carbonate/Glycine (Tums) 1,000 mg PO Q2H PRN PRN Reason: Indigestion Diphenhydramine HCl (Benadryl) 25 mg IVPUSH Q6H PRN PRN Reason: Itching Diphenhydramine HCl (Benadryl) 50 mg IVPUSH Q6H PRN PRN Reason: Itching Docusate Sodium (Colace) 100 mg PO BID PRN PRN Reason: Constipation Ephedrine Sulfate (Ephedrine Sulfate) 10 mg IVPUSH ASDIRECTED PRN PRN Reason: Hypotension Fentanyl (Sublimaze) 100 mcg IVPUSH Q1H PRN PRN Reason: Pain (moderate 4-6) Last Admin: 09/29/20 21:01 Dose: 50 mcg Documented by: Fentanyl (Sublimaze) Confirm Administered Dose 100 mcg .ROUTE .STK-MED ONE Stop: 09/29/20 19:48 Fentanyl (Sublimaze) 100 mcg IVPUSH Q1H PRN PRN Reason: Pain (moderate 4-6) Oxytocin/Sodium Chloride (Pitocin In Ns 20 Units/1,000 Ml) 20 unit in 1,000 mls @ 6 mls/hr IV TITRATE [facility]; Protocol Last Titration: 09/29/20 19:01 Dose: 1 munits/min, 3 mls/hr Documented by: Lactated Ringer's (Ringers, Lactated) 1,000 mls @ 999 mls/hr IV BOLUS ONE Stop: 09/29/20 17:05 Last Admin: 09/29/20 16:05 Dose: 999 mls/hr Documented by: Lactated Ringer's (Ringers, Lactated) 1,000 mls @ 100 mls/hr IV ASDIRECTED [facility] Last Admin: 09/29/20 17:05 Dose: 100 mls/hr Documented by: Ropivacaine 200 mg/ Premix 100 mls @ 0 mls/hr EPIDUR ASDIRECTED [facility] Last Admin: 09/29/20 18:00 Dose: 12 mls/hr Documented by: Ibuprofen (Motrin Bulk Bottle) 600 mg PO Q6H PRN PRN Reason: Pain Last Admin: 09/30/20 00:46 Dose: 600 mg Documented by: Lidocaine HCl (Xylocaine 1%) Confirm Administered Dose 50 ml .ROUTE .STK-MED ONE Stop: 09/29/20 21:49 Last Admin: 09/29/20 21:45 Dose: 50 ml Documented by: Lidocaine HCl (Xylocaine 1%) 20 ml INJECT ONETIME ONE Stop: 09/29/20 22:33 Last Admin: 09/30/20 03:22 Dose: Not Given Documented by: Misoprostol (Cytotec) 50 mcg VAG ONETIME ONE Stop: 09/29/20 09:31 Last Admin: 09/29/20 09:30 Dose: 50 mcg Documented by: Misoprostol (Cytotec) 100 mcg VAG ONETIME ONE Stop: 09/29/20 13:01 Misoprostol (Cytotec) 100 mcg VAG ONETIME ONE Stop: 09/29/20 12:46 Last Admin: 09/29/20 13:53 Dose: Not Given Documented by: Naloxone HCl (Narcan) 0.1 mg IVPUSH ASDIRECTED PRN PRN Reason: Oversedation Ondansetron HCl (Zofran) 4 mg IV Q4H PRN PRN Reason: Nausea/Vomiting Sodium Chloride (Saline Flush) 10 ml FLUSH ASDIRECTED PRN PRN Reason: Keep Vein Open Witkarri Gunnel (Tucks) 1 pad TOP ASDIRECTED PRN PRN Reason: Other Last Admin: 09/30/20 00:46 Dose: 1 pad Documented by: - Infant Interaction Disposition, : [place] in Room with Family Interaction: Holding Infant Support Person: - Recovery Exam Fundal Tone: Firm Fundal Level: 1 Fingerbreadths Below Umbilicus Fundal Placement: Midline Lochia Amount: Small Lochia Color: Rubra/Red Perineum Description: Intact, Minimal Bruising/Swelling Episiotomy/Laceration: Approximated Bladder Status: Voiding Urinary Elimination: Voided - Exam General: Alert, Oriented, Mild Distress (emotional) HEENT: Pupils Equal, Pupils Reactive, Mucous Membr. Moist/[place] Neck: Supple Lungs: Clear to Auscultation, Normal Respiratory Effort Cardiovascular: Regular Rate, Regular Rhythm GI/Abdominal Exam: Normal Bowel Sounds, Soft, Non-Tender, No Mass, Pelvis Stable Extremities: Normal Inspection, Normal Range of Motion, Non-Tender, No Pedal Edema, Normal Capillary Refill Skin: Warm, Dry, Intact Neurological: No New Focal Deficit Psy/Mental Status: Alert, Other (tearful, reports feeling physical pain from the suffering, normal responses to grieving) - Problem List & Annotations (1) 33 weeks gestation of SNOMED Code(s): 76147722 Code(s): Z3A.33 - 33 WEEKS GESTATION OF Status: Acute (2) demise in [place] greater than 22 weeks gestation, antepartum SNOMED Code(s): 00594436, 650287980 Code(s): O36.4XX0 - MATERNAL CARE FOR INTRAUTERINE , NOT APPLICABLE OR UNSP Status: Acute (3) Second degree perineal laceration SNOMED Code(s): 6624436 Code(s): O70.1 - SECOND DEGREE PERINEAL LACERATION DURING DELIVERY Status: Acute (4) Vaginal delivery SNOMED Code(s): 099968641 Code(s): O80 - ENCOUNTER FOR FULL-TERM UNCOMPLICATED DELIVERY Status: Acute - Problem List Review Problem List Initiated/Reviewed/Updated: Yes - Assessment Assessment:: 09/29/20 delivered stillborn male at 2133 after induction of labor Baby boy 4 lb 4 oz, 17 in long 2nd degree perineal laceration, repaired EBL 150 ml AVSS Holding baby, crying intermittently Baby boy has some peeling skin, careful cares with him, kanwal red skin (normal) Addendum to above: Measurement of umbilical cord is approximally 57 cm give or take some from trimming it 09/30/20 PP uncomplicated so far, FF, bleeding light, pain controlled Mother holding infant and crying in the bed, grieving normally Reports no pain in perineum from sutures VSS Hgb stable Mother and father would like to go home later most likely but will decide on how much time they need to hold their baby Mother's LDH was elevated but Pr/Cr urine ratio was normal - Plan Plan:: 09/29/20 Assessment: 30 yo here for elective induction of labor due to demise that was diagnosed yesterday Baby likely 09/26/20, the day she felt no movement Uncomplicated , no risk factors identified 33 09/05 today SVE /3 Plan: Lab work ordered to include TORCH panel and parovirus Declines genetic testing Declines autopsy 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) Emotional and physical support Cytotec 50 mcg inserted vaginally this am, recheck in 4 hours No monitoring needed until active labor may want to check contraction pattern Mother and father have been counseled on what baby may look like, fragility of skin and bones Offered photography 09/29/20 Perineal care [employer] here Allow mother to [place] with baby and hold infant as long as she desires Anticipate discharge home when mother is stable and feeling ready, possibly tomorrow passport application examiner called per policy Collect keepsakes of baby per policy No genetic testing, no autopsy per parents request Addendum to above: Mother and father were sure of no genetic testing but did question it for a little while after delivery so a 1cm by 1 cm area of placenta was cut out including the membrane side along with a piece of umbilical cord that were both kept in sterile saline in case of change of mind. 09/30/20 Again, no autopsy, no genetic testing, pending TORCH panel Nurses have helped to gather memories including molds, lock of hair, prints Parents have chosen a home and we will contact them when they are ready Discharge home when ready, they will decide based on how long they want to spend with their baby boy Follow up with mom next week, clinic will schedule, 6 week as well Placenta was sent to pathology
== END 2020-09-30 15:05 | disposition home or self-care (01) | DRG 807 ==
LOC: JP.OB 09:00 → OBSVTOIN 22:22 → JP.MS 23:30
PROVIDERS: ADMIT Advanced Practice Midwife; ATTEND Advanced Practice Midwife
PROC: 10E0XZZ Delivery of Products of Conception, External Approach (ICD-10-PCS; principal; 2020-09-29)
PROC: 0KQM0ZZ Repair Perineum Muscle, Open Approach (ICD-10-PCS; 2020-09-29)
PROC: 10907ZC Drainage of Amniotic Fluid, Therapeutic from Products of Conception, Via Natural or Artificial Opening (ICD-10-PCS; 2020-09-29)
PROC: 3E0R3BZ Introduction of Anesthetic Agent into Spinal Canal, Percutaneous Approach (ICD-10-PCS; 2020-09-29)
PROC: 00HU33Z Insertion of Infusion Device into Spinal Canal, Percutaneous Approach (ICD-10-PCS; 2020-09-29)
PROC: 3E033VJ Introduction of Other Hormone into Peripheral Vein, Percutaneous Approach (ICD-10-PCS; 2020-09-29)
DX: O36.4XX0 Maternal care for intrauterine death, not applicable or unspecified (principal); Z37.1 Single stillbirth; Z3A.33 33 weeks gestation of pregnancy; O70.1 Second degree perineal laceration during delivery; Z20.822 Contact with and (suspected) exposure to COVID-19
CPT/HCPCS: 36415; 51702; 59409; 80053; 80305-QW; 81001; 82570; 83615; 84156; 84443; 85025; 85384; 85610; 85730; 86644; 86645; 86695; 86696; 86747; 86762; 86777; 86778; 86850; 86900; 86901; 87081; 87086; A9270-GY; J2001; J2590; J2795; J3010; J7120; U0002

== ENCOUNTER 2022-08-17 17:31 | Emergency (ER) | payer MEDICAID ==
[2022-08-17 19:05] LABS: ESTIMATED GFR 118 mL/min (>60)
[2022-08-17] MEDS ORDERED: Sodium Chloride 0.9% 10 ML Syringe FLUSH PRN (19:13)
[2022-08-17] MEDS ORDERED: Sodium Chloride 0.9% 1,000 ML IV SCH (19:15)
[2022-08-17 20:08] VITALS: BP 109/74; PULSE 71
== END 2022-08-17 21:02 | disposition home or self-care (01) ==
LOC: JP.ED 17:31
DX: D50.9 Iron deficiency anemia, unspecified (principal); E86.0 Dehydration; F17.210 Nicotine dependence, cigarettes, uncomplicated
CPT/HCPCS: 36415; 80053; 81001; 81025; 83550; 85025; 96360; 99283; 99284-25; J3490; J7030